=== PATIENT | female | born 1995 | race Asian ===

== ENCOUNTER 2016-12-17 02:26 | Emergency (ER) | payer MEDICAID ==
--- NOTE | 2016-12-17 02:28 | EDPHY ---
H & P HPI/ROS: HPI CHIEF COMPLAINT: Lymphadenopathy, swollen upper lip HISTORY OF PRESENT ILLNESS: This patient very pleasant 21-year-old female she denies having any significant medical or surgical history and does not take any daily medications, she is [employer] student, she presents emergency room at 2:30 a.m. in the morning after she woke up with a swollen upper lip. She denies tongue swelling, denies trouble swallowing, denies change in phonation, denies drooling, denies throat pain. She tells me about 3 weeks ago she had a fever however since then she has not had one. She tells me that she noticed on Saturday or 2 days ago she had some swollen lymph nodes underneath her left mandibular region and right mandibular region, there is somewhat painful, they have continued to be swollen. However she woke up tonight with an upper lip that was full. Denies fever, denies nausea vomiting. Denies abdominal pain, skin itching or rash. She is unclear what caused her lips to swell. She has never had this before. She tells me that she woke up tonight approximately half an hour ago with upper lip swelling unsure how long it has been going on. Past Medical History: Denies significant medical history Past Surgical History: Denies significant surgical history Social History: [employer] student, denies drugs alcohol tobacco products Family History: noncontributory ROS REVIEW OF SYSTEMS: A comprehensive 10 point review of systems is otherwise negative aside from elements mentioned in the history of present illness. Exam Constitutional triage nursing summary reviewed, vital signs reviewed, awake/ alert. Eyes normal conjunctivae and sclera, EOMI, PERRLA. HENT oropharynx: Posterior pharynx is normal, uvula midline, soft palate normal, no signs of LATIN DANCER or RPA, there is submandibular lymphadenopathy present, no stridor, no drooling, no trismus, it is noted the upper lip is somewhat swollen, has slight asymmetrical swelling left greater than right of the upper lip. moist mucus membranes, no epistaxis, neck supple/ no meningismus, no raccoon eyes. Respiratory clear to auscultation bilaterally, normal breath sounds, no respiratory distress, no wheezing. Cardiovascular rate normal, regular rhythm, no murmur, no edema, distal pulses normal. Gastrointestinal soft, non-tender, no rebound, no guarding, normal bowel sounds, no distension, no pulsatile mass. Genitourinary no CVA tenderness. Musculoskeletal no midline vertebral tenderness, full range of motion, no calf swelling, no tenderness of extremities, no meningismus, good pulses, neurovascularly intact. Skin pink, warm, & dry, no rash, skin atraumatic. Neurologic awake, alert and oriented x 3, AAOx3, moves all 4 extremities equally, motor intact, sensory intact, CN II-XII intact, normal cerebellar, normal vision, normal speech. Psychiatric normal mood/affect. Heme/Lymph/Immune no lymphadenopathy. Differential Diagnosis: Includes but is not limited to in a particular order, strep pharyngitis, mono, allergic reaction, angioedema Medical Decision Making: this patient had an IV established patient be given 10 mg IV Decadron, 25 mg IV Benadryl, 20 mg IV Pepcid, will check a rapid strep, check a mono. She be hydrated. We will watch for further swelling of lips or oropharynx. Re-evaluation: 0435: re-evaluation at this time this patient is resting comfortably no progression of allergic reaction. Specifically there has been no progression of lip swelling, urticaria rash, no trouble breathing, no trouble swallowing. Rapid strep is negative, mono test negative. She did receive Decadron, Benadryl and Pepcid. I will place her on prednisone for the next 3 days. Benadryl for next 3 days. She does understand she develops any worsening symptoms questions or concerns to return emergency room she understands strict return precautions about further oropharynx heel swelling she understands return emergency room if she develops worsening lip swelling, tongue swelling, or has trouble breathing or swallowing. Also prescription given for epinephrine pen. Unclear what caused her upper lip swelling. Source: Patient Constitutional: Initial Vital Signs Temperature (C) 36.9 C 12/17/16 02:28 Heart Rate 78 12/17/16 02:28 Respiratory Rate 14 12/17/16 02:28 Blood Pressure 104/71 12/17/16 02:28 O2 Sat (%) 95 12/17/16 02:28 O2 Delivery Mode Room Air Allergies/Adverse Reactions: No Known Allergies Allergy (Unverified 12/17/16 02:28) Home Medications: Medication Instructions Recorded EPINEPHRINE [EPIPEN] 0.3 mg IM ONCE #2 syr 12/17/16 diphenhydrAMINE [Benadryl 25 MG 25 mg PO BID #6 tab 12/17/16 (*)] predniSONE 60 mg PO DAILY #9 tab 12/17/16 Medical Decision Making - Data Points Laboratory Results: 12/17/16 12/17/16 Unknown 02:55 Monoscreen NEGATIVE (NEGATIVE) Group A Strep Screen NEGATIVE (NEGATIVE) Group A Strep DNA Pending Medications Given: Discontinued Medications Dexamethasone Sodium Phosphate (Decadron) 10 mg IVP/PO ONCE ONE Stop: 12/17/16 02:39 Last Admin: 12/17/16 03:00 Dose: 10 mg Diphenhydramine HCl (Benadryl Injection) 25 mg IVP EDNOW ONE Stop: 12/17/16 02:39 Last Admin: 12/17/16 03:00 Dose: 25 mg Famotidine (Pepcid) 20 mg IVP EDNOW ONE Stop: 12/17/16 02:39 Last Admin: 12/17/16 03:01 Dose: 20 mg Sodium Chloride (Ns) 1,000 mls @ 0 mls/hr IV ONCE ONE PRN Reason: Wide Open Stop: 12/17/16 02:40 Last Admin: 12/17/16 03:00 Dose: 1,000 mls Departure - Departure Disposition: Home, Routine, Self-Care Clinical Impression: Allergic reaction Qualifiers: Encounter type: initial encounter Qualifier Code: (T78.40XA) Allergy, unspecified, initial encounter Condition: Good Instructions: Allergies (ED), Anaphylaxis (ED), Urticaria (ED) Additional Instructions: 1. please stay well-hydrated 2. return immediately to the emergency room if he develops any worsening symptoms questions or concerns. 3. return if he develops with swelling, trouble swallowing, tongue swelling. 4.Please take prednisone and Benadryl for the next 3 days. 5.I have also given a prescription for epinephrine pen. Inject yourself with this pen if he develops severe allergic reaction. Referrals: NONE *PRIMARY CARE P,. [Primary Care Provider] - As per Instructions Prescriptions: diphenhydrAMINE [Benadryl 25 MG (*)] 25 mg PO BID #6 tab EPINEPHRINE [EPIPEN] 0.3 mg IM ONCE #2 syr predniSONE 60 mg PO DAILY #9 tab
[2016-12-17 02:31] VITALS: TEMP 98.4
[2016-12-17] MEDS ORDERED: DEXAMETHASONE VARIABLE DOSE IVP/PO ONE (02:38)
[2016-12-17] MEDS ORDERED: FAMOTIDINE 20 MG/2 ML SDV IVP ONE (02:38)
[2016-12-17] MEDS ORDERED: NS 1,000 ML IV ONE (02:39)
[2016-12-17] MEDS ORDERED: DEXAMETHASONE 10 MG/ML VIAL ONE (02:43)
[2016-12-17 04:18] VITALS: RESP 16; O2SAT 97
[2016-12-17 04:44] VITALS: BP 105/73; PULSE 62
== END 2016-12-17 04:44 | disposition home or self-care (01) ==
DX: T78.40XA Allergy, unspecified, initial encounter (principal)
CPT/HCPCS: 96374; J1200